=== PATIENT | male | born 1980 | race Caucasian/White ===

== ENCOUNTER 2016-12-04 16:26 | Emergency (ER) | payer SELFPAY ==
[~2016-12-04] VITALS: Ht 172.7 cm; Wt 88.6 kg
[2016-12-04] MEDS ORDERED: IBUPROFEN 800 MG TABLET PO ONE (18:30)
[2016-12-04 19:37] VITALS: BP 145/83
== END 2016-12-04 19:42 | disposition home or self-care (01) ==
LOC: EMS 16:35
DX: S60.221A Contusion of right hand, initial encounter (principal); X58.XXXA Exposure to other specified factors, initial encounter; Y93.89 Activity, other specified; Y92.89 Other specified places as the place of occurrence of the external cause; Y99.8 Other external cause status
CPT/HCPCS: 99284